=== PATIENT | female | born 1955 | race Caucasian/White ===

== ENCOUNTER → 2017-04-11 | Day surgery (SDC) | payer OTHER ==
[~2017-04-11] VITALS: Ht 162.6 cm; Wt 85.3 kg
[~2017-04-11] MED LIST: 0.9% Sodium Chloride 1,000 ML IV SCH; OMEP40CA36 PO; SULF1TAB35 PO; Sodium Chloride LOK Flush 10 mL Syringe IV PRN; fentaNYL-PF 50 mCg/mL 2 mL Inj IVPUSH PRN
[2017-04-11 07:41] VITALS: BP 128/88; PULSE 66; O2SAT 95
[2017-04-11 08:18] VITALS: BP 118/7; PULSE 57; RESP 14; O2SAT 94
[2017-04-11 08:31] VITALS: BP 130/76; PULSE 78; RESP 14; O2SAT 96
[2017-04-11 08:37] VITALS: BP 135/83; PULSE 79; RESP 14; O2SAT 96
--- NOTE | 2017-04-11 10:02 | ENDO ---
[address] [address] ENDOSCOPY PROCEDURE PATIENT: REINALDO VILLATORO : 1955 MR#: [id number] ADMIT: 04/11/2017 JOB ID: [id number] DATE OF SERVICE: 04/11/2017 PROCEDURE: Esophagogastroduodenoscopy. INDICATIONS: Gastroesophageal reflux and abnormal barium study which showed the possibility of a tumor in the distal esophagus as there was luminal irregularity. The patient's ASA classification is two. Mallampati score is two. MEDICATIONS: 1. Versed 4 mg. 2. Fentanyl 75 mcg. INSTRUMENT USED: [id number] PROCEDURE DETAILS: After informed consent was obtained, the patient was brought into the GI suite, where she was placed on oxygen via nasal cannula and monitored with continuous pulse oximeter, telemetry, and blood pressure monitoring. A time-out was performed. Then, she was placed in a left lateral decubitus position and medications were administered for sedation. A bite block was placed. Standard EGD scope was then inserted through the bite block and advanced to the GE junction where we encountered some mild resistance. However, with gentle pressure, we were able to advance beyond the GE junction and advance the scope into the second portion of the duodenum. FINDINGS: 1. The GE junction was at approximately 34 cm and the mucosa proximal to the GE junction was ulcerated. There was erythema as well. 2. We then advanced the scope to the duodenum where we encountered normal duodenal mucosa in the first and second portion of the duodenum as well as the duodenal bulb. 3. The pylorus appeared normal. 4. Normal appearing antrum and gastric body. 5. Retroflexed views in the gastric body revealed a normal-appearing fundus and a hiatal hernia was appreciated. 6. As the scope was withdrawn the diaphragmatic hiatus was at approximately 39 cm from the GE junction which was at 34 cm. The mucosa there was ulcerated. Using a TTS balloon the stricture was gradually dilated from the 11 mm to 13.5 mm. At this point, there was some mild oozing of blood noted at the GE junction and further dilation was not performed. The scope was then withdrawn and the remainder of the esophagus was examined carefully which was unremarkable. IMPRESSION: 1. Stricture with ulceration at the gastroesophageal junction. Appearance consistent with peptic stricture s/p balloon dilation. 2. Hiatal hernia. RECOMMENDATIONS: 1. Reflux precautions. 2. Increase PPI to b.i.d. for six weeks. 3. Repeat EGD in six weeks. COMPLICATIONS: None. ESTIMATED BLOOD LOSS: Less than 5 mL. MTDD
== END | disposition home or self-care (01) ==
LOC: END 00:06
PROVIDERS: ATTEND Internal Medicine Gastroenterology
DX: K22.2 Esophageal obstruction (principal); K44.9 Diaphragmatic hernia without obstruction or gangrene; K21.9 Gastro-esophageal reflux disease without esophagitis; Z79.899 Other long term (current) drug therapy; Z87.891 Personal history of nicotine dependence
CPT/HCPCS: 43249; G0500; J2250; J3010; J7030

== ENCOUNTER → 2017-05-27 | Day surgery (SDC) | payer OTHER ==
[~2017-05-27] VITALS: Ht 162.6 cm; Wt 85.0 kg
[2017-05-27 07:48] VITALS: BP 126/79; PULSE 63; RESP 16; O2SAT 93
[2017-05-27 08:20] VITALS: BP 120/82; PULSE 61; RESP 16; O2SAT 92
[2017-05-27 08:30] VITALS: BP 112/73; PULSE 59; O2SAT 95
[2017-05-27 08:39] VITALS: BP 128/81; PULSE 56; RESP 16; O2SAT 95
[2017-05-27 08:49] VITALS: BP 112/76; PULSE 66; RESP 16; O2SAT 95
--- NOTE | 2017-05-27 09:40 | ENDO ---
[address] [address] ENDOSCOPY PROCEDURE PATIENT: REINALDO VILLATORO : 1955 MR#: [id number] ADMIT: 05/27/2017 JOB ID: [id number] DATE OF SERVICE: 05/27/2017 PROCEDURE: Esophagogastroduodenoscopy. INDICATION: Esophageal stricture. The patient initially presented with dysphagia. Her prior EGD showed a focal esophageal stricture at the GE junction which was dilated up to 13.5 mm. Following that, her symptoms have improved. However, for the last several weeks she has noticed recurrence of minimal dysphagia. ASA CLASSIFICATION: The patient's ASA classification is II. MALLAMPATI SCORE: Mallampati score is 2. MEDICATIONS: 1. Versed 4 mg. 2. Fentanyl 75 mcg. INSTRUMENT USED: [id number]. PROCEDURE DETAILS: After informed consent was obtained, the patient was brought into the GI suite, where she was placed on oxygen via nasal cannula and monitored with continuous pulse oximeter, telemetry, and blood pressure monitoring. A time-out was performed. Then, she was placed in the left lateral decubitus position, and medications were administered for sedation. A bite block was placed. A standard EGD scope was inserted through the bite block and advanced under direct visualization without difficulty to the second portion of the duodenum. FINDINGS: 1. Normal appearing duodenal bulb, first and second portions. 2. Normal appearing pylorus, antrum and gastric body. 3. Retroflexed views in the gastric body demonstrated a small hiatal hernia but otherwise, the cardia and fundus appeared normal. 4. The diaphragmatic hiatus was at approximately 40 cm, and the GE junction was at 34 cm. As the patient had symptoms of dysphagia, I elected to empirically dilate the GE junction. Using a TTS balloon, the GE junction was dilated from 13.5 mm to 15 mm. Following dilation to 15 mm, there was heme noted at the GE junction and therefore, further dilation was not performed. The remainder of the esophagus appeared otherwise unremarkable. The mucosa at the GE junction appeared normal as well prior to dilation. IMPRESSION: Focal esophageal stricture at gastroesophageal junction. RECOMMENDATIONS: 1. Continue PPI. 2. If dysphagia persists, may need to repeat dilation. COMPLICATIONS: None. ESTIMATED BLOOD LOSS: Less than 5 mL.
== END | disposition home or self-care (01) ==
LOC: END 00:54
PROVIDERS: ATTEND Internal Medicine Gastroenterology
DX: K22.2 Esophageal obstruction (principal); Z79.899 Other long term (current) drug therapy; Z87.891 Personal history of nicotine dependence
CPT/HCPCS: 43249; G0500; J2250; J3010; J7030